=== PATIENT | male | born 1975 | race American Indian/Alaskan Native ===

== ENCOUNTER 2017-01-05 08:55 | Emergency (ER) | payer MEDICAID, OTHER ==
[2017-01-05 09:22] VITALS: BMI 38.4
[2017-01-05 09:25] VITALS: TEMP 99
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
--- NOTE | 2017-01-05 09:52 | RAD ---
PROCEDURE: Left Wrist Radiographs. HISTORY: left hand pain COMPARISON: None. FINDINGS: BONES: Dorsal proximal row carpal osseous hypertrophy- possible carpal bossing. No fracture. JOINTS: Normal. No dislocation. SOFT TISSUES: Normal. OTHER FINDINGS: None. IMPRESSION: Dorsal proximal row carpal osseous hypertrophy- possible carpal bossing. No fracture.
--- NOTE | 2017-01-05 09:52 | RAD ---
PROCEDURE: Left Hand Radiographs. HISTORY: left hand pain COMPARISON: None. FINDINGS: BONES: Dorsal proximal row carpal osseous hypertrophy- possible carpal bossing. No fracture. JOINTS: Normal. No osteoarthritic changes. SOFT TISSUES: Normal. OTHER FINDINGS: None. IMPRESSION: Dorsal proximal row carpal osseous hypertrophy- possible carpal bossing. No fracture.
[2017-01-05 10:48] VITALS: RESP 18
[2017-01-05 10:49] VITALS: BP 173/96; PULSE 85; O2SAT 100
== END 2017-01-05 10:51 | disposition home or self-care (01) ==
LOC: ED 08:55
DX: S60.222A Contusion of left hand, initial encounter (principal); Y04.0XXA Assault by unarmed brawl or fight, initial encounter; Y93.89 Activity, other specified; Y92.89 Other specified places as the place of occurrence of the external cause